=== PATIENT | male | born 1945 | race Caucasian/White ===

== ENCOUNTER 2025-08-10 10:14 | Outpatient (AMB) | payer OTHER, MEDICARE, SELFPAY ==
--- NOTE | 2025-08-10 10:23 | MHC.OFFVIS ---
Intake Visit Reasons: 1YR. Chr MS Allergies No Known Allergies Allergy (Verified 08/10/25 10:24) HPI Comments Details: He was doing okay. MS stable with no new symptoms. Balance was about the same. Walking few times a week with walking poles and lifting weights. Using cane for security. May have had one minor fall in the last year without injury. No dizziness or passing out. Memory was about the same. Memory may have slipped a bit as names do not come as quickly, but not impairing him in any way. He is using a cane for security. Does some home domi-chi. 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 Stopped driving in 2011. Stopped Extavia Injections since Middle of April 2018. Has a suprapubic catheter with a bag by Windy Gerber, instead of a TURP. He gets a monthly bag change and 3 catheters a month. He has chronic MS : relapsing remitting for about 40 years (since around 1984). His main deficit is one of balance and mild incoordination on the left side. His energy level is good. His memory is stable with no cognitive issues. [facility] Surgical History (Updated 08/10/25 @ 10:28 by Danielle Talbert CNP) Status post THR (total hip replacement) Review of Systems Const Denies chills, Denies daytime sleepiness, Denies difficulty sleeping, Denies fatigue, Denies fever(s), Denies frequent falls, Denies headache(s), Denies increased appetite, Denies poor appetite, Denies snoring, Denies weakness, Denies weight gain and Denies weight loss Eyes Denies loss of vision ENT Denies vertigo, Reports dizziness, Denies headache(s) and Denies neck pain Card Denies chest pain at rest, Denies chest pain with activity, Denies syncope, Denies leg edema, Denies palpitations, Denies dyspnea and Denies dyspnea on exertion Resp Denies cough, Denies dyspnea, Denies dyspnea on exertion and Denies snoring GI Denies abdominal pain, Denies constipation, Denies heartburn, Denies diarrhea and Denies nausea Denies urinary frequency, Denies urinary incontinence and Denies urinary urgency Musc Reports abnormal gait (balance difficulty), Denies back pain, Denies myalgias, Denies arthralgias, Denies neck pain, Denies numbness and Denies tingling Neuro Reports abnormal gait (balance difficulty), Denies vertigo, Reports dizziness, Denies syncope, Denies frequent falls, Denies headache(s), Denies lack of coordination, Denies loss of vision, Denies memory loss, Denies numbness, Denies Other visual disturbances, Denies restless legs, Denies seizure-like activity, Denies tingling, Denies paresthesias, Denies tremor(s) and Denies weakness Psych Denies anxiety, Denies depression, Denies auditory hallucinations, Denies memory loss and Denies visual hallucinations Endo Denies fatigue and Denies palpitations Physical Exam Const Other: General Appearance:? normal, in no acute distress. Heart:? S1, S2 normal, no murmurs. Lungs:? clear anteriorly and posteriorly. Musculoskeletal:? normal. Extremities:? no edema. Psych:? alert, oriented, cognitive function intact, cooperative with exam. Neuro Other: Abnormal Neurological Findings:?Slight dysmetria of FTN, L > R. Slow DIMA on L finger tapping. Broad based gait with cane. Subtle LUE weakness. Mental Status: alert and oriented X 3. Normal attention, orientation, memory, and affect. Cranial Nerves: Pupils are equal, round, and reactive to light. External ocular muscles are intact. Visual melo are full, no ptosis. Face is symmetrical, no facial weakness or droop. Facial sensations are normal. Tongue protrudes in midline. Palate elevates symmetrically. Shoulder shrugging is normal Motor Examination: As above, otherwise normal muscle tone, bulk and strength. No atrophy or fasciculations. No drift of the extended upper extremities. DTR 2+. Plantars are flexor. Sensory Exam: Normal light touch, temperature, pinprick, vibration, and joint-position sensations. Rhomberg sign is absent. Coordination: As above. Gait Exam: Broad based with cane and slight ataxia. Cerebellar Signs: Slight dysmetria of FTN, L > R. Extrapyramidal System: No tremor, rigidity with normal facial expressions. No bradykinesia. No bradyphrenia. Normal arm swing and posture. No propulsion or retropulsion. Speech: Normal. Assessment & Plan Assessment & Plan (1) Multiple sclerosis: Code(s): G35 - Multiple sclerosis Category: Medical Plan: MS stable, no new symptoms. Stay physically active, continue to use cane for additional support. Plan Meds tried: Extavia injections (stopped mid-04/2018) Coding Level of Care Code Est Pt Level 3 (62944) Diagnoses Multiple sclerosis G35
--- OUTSIDE RECORDS SUMMARY | 2025-08-10 11:20 | XMS_ITS | Encounter Summary ---
Author Organization [facility] Address [address] [place] [address] Care Team Providers Care Criminal Justice Instructor Name Role Phone Harris Hairston MD Primary Care Provider Encounter Details Date Type Department Care Team (Latest Contact Info) Description 01/08/2025 Lab Requisition [facility] - Main Lab [address] [place] [id number] [place], [place] [address] [address] Neuromuscular dysfunction of bladder, unspecified Social History Tobacco Use Types Packs/Day Years Used Date Smoking Tobacco: Never Assessed Sex and Gender Information Value Date Recorded Sex Assigned at Not on file Legal Sex Male 10:51 AM EST Gender Identity Not on file Sexual Orientation Not on file documented as of this encounter Plan of Treatment Not on file documented as of this encounter Procedures Procedure Name Priority Date/Time Associated Diagnosis Comments BACTERIAL IDENTIFICATION AND SUSCEPTIBILITY, AEROBIC Routine 01/07/2025 12:00 AM EST Neuromuscular dysfunction of bladder, unspecified documented in this encounter Results * (ABNORMAL) Bacterial identification and susceptibility, aerobic (01/07/2025 12:00 AM EST) Culture, Bacterial ID and Sensitivity Enterococcus faecalis(A) ROQUE 01/11/2025 11:02 AM EST [facility] Comment: Edited result: Previously reported as Gram Positive Cocci on 01/08/2025 at 1138 EST. Edited result: Previously reported as Enterococcus species on 01/09/2025 at 0914 EST. Culture, Bacterial ID and Sensitivity Aerococcus urinae(A) ROQUE 01/11/2025 11:02 AM EST [facility] Comment: Susceptibility testing not routinely performed. If further therapeutic information is required, please consult an infectious disease specialist. The organism value for this result has been updated. These results have been appended to the previously preliminary verified report. This is an edited result. Previous organism was Streptococcus alpha-hemolytic on 01/10/2025 at 0926 EST. Other Urine specimen from urinary conduit / Unknown 01/07/2025 01/08/2025 10:28 AM EST Narrative Organism Antibiotic Method Susceptibility Enterococcus faecalis Benzylpenicillin ROQUE 4 ug/ml: Susceptible Enterococcus faecalis Ampicillin ROQUE <=2 ug/ml: Susceptible Enterococcus faecalis Ciprofloxacin ROQUE 1 ug/ml: Susceptible Enterococcus faecalis Levofloxacin ROQUE 1 ug/ml: Susceptible Enterococcus faecalis Linezolid ROQUE 2 ug/ml: Susceptible Enterococcus faecalis Vancomycin ROQUE 2 ug/ml: Susceptible Enterococcus faecalis Tetracycline ROQUE >=16 ug/ml: Resistant Enterococcus faecalis Nitrofurantoin ROQUE <=16 ug/ml: Susceptible us [facility]CRO[facility]OLOGY - GENERAL ORDER SUSIE Final Result [facility] [address] [place] [address], documented in this encounter Visit Diagnoses Diagnosis Neuromuscular dysfunction of bladder, unspecified documented in this encounter Care Teams Criminal Justice Instructor Relationship Specialty Start Date End Date Harris Hairston MD [address] PCP - General 09/09/08 documented as of this encounter
--- OUTSIDE RECORDS SUMMARY | 2025-08-10 11:20 | XMS_ITS | Clinical Summary ---
Author Organization [facility] Facility Address [address] [address] Care Team Providers Care Pearl Stringer Name Role Phone Harris Hairston MD Primary Care Provider [phone] Allergies No known active allergies Medications tamsulosin (FLOMAX) 0.4 MG 24 hr capsule 10/26/2021 Active thiamine (VITAMIN B-1) 100 MG tablet 10/30/2021 Active Active Problems Problem Noted Date Diagnosed Date Hydronephrosis 11/06/2021 Family History Medical History Relation Comments Kidney cancer Father Heart failure Mother Relation Status Comments Father Mother Social History Tobacco Use Types Packs/Day Years Used Date Smoking Tobacco: Never Smokeless Tobacco: Never Tobacco Cessation:Counseling Given: No Alcohol Use Standard Drinks/Week Comments Yes 0 (1 standard drink = 0.6 oz pur e alcohol) 1-2 beers Sex and Gender Information Value Date Recorded Sex Assigned at Not on file Legal Sex Male 8:17 AM EST Gender Identity Not on file Sexual Orientation Not on file Last Filed Vital Signs Vital Sign Reading Time Taken Comments Blood Pressure 152/87 11/06/2021 3:25 PM EST Pulse 81 11/06/2021 3:25 PM EST Temperature - - Respiratory Rate - - Oxygen Saturation - - Inhaled Oxygen Concentration - - Weight 77.5 kg (170 lb 12.8 oz) 11/06/2021 3:25 PM EST Height - - Body Mass Index - - Plan of Treatment Health Maintenance Due Date Last Done Comments Pneumococcal Vaccine: 50+ Ye ars (1 of 1 - PCV) 1997 Influenza Vaccine (#1) 2025 Hepatitis B Vaccine Aged Out No longe r eligible based on patient's age to complete this topic Insurance Medicare [facility] Care Teams Pearl Stringer Relationship Specialty Start Date End Date Harris Hairston MD [address] [place] [address] [address] [place] [address] PCP - General Internal Medicine 10/11/21
--- OUTSIDE RECORDS SUMMARY | 2025-08-10 11:20 | XMS_ITS | Clinical Summary ---
Author Organization [address] [facility] Address [address] [place] [address] Phone Care Team Providers Care Admitted Attorneys Name Role Phone Harris Hairston MD Primary Care Provider Social History Tobacco Use Types Packs/Day Years Used Date Smoking Tobacco: Never Assessed Sex and Gender Information Value Date Recorded Sex Assigned at Not on file Legal Sex Male 10:51 AM EST Gender Identity Not on file Sexual Orientation Not on file Last Filed Vital Signs Vital Sign Reading Time Taken Comments Blood Pressure 125/92 10/04/2023 5:18 PM EST Sit ting L Arm Pulse 72 10/04/2023 5:18 PM EST Temperature - - Respiratory Rate - - Oxygen Saturation - - Inhaled Oxygen Concentration - - Weight - - Height - - Body Mass Index - - Plan of Treatment Health Maintenance Due Date Last Done Comments DTaP,Tdap,and Td Vaccines (1 - Tdap) 1966 Pneumococcal Vaccine: 50+ Ye ars (1 of 1 - PCV) 1997 Zoster Vaccines (1 of 2) 1997 RSV Immunization Adult Patie nts (1 - 1-dose 75+ series) 2022 Cholesterol Screening (Lipid Panel) 10/09/2022 Falls Risk Assessment 10/09/2022 Hepatitis C Screening 10/09/2022 Medicare Annual Wellness Visit 10/09/2022 Social Influencers of Health Screening 10/09/2022 Depression Screening 11/11/2024 COVID-19 Vaccine (1 - 2023-2 5 season) 2025 Influenza Vaccine (#1) 2025 HIB Vaccines Aged Out No longer eligi ble based on patient's age to complete this topic HPV Vaccines Aged Out No longer eligi ble based on patient's age to complete this topic Hepatitis A Vaccines Aged Out No long er eligible based on patient's age to complete this topic Hepatitis B Vaccines Aged Out No long er eligible based on patient's age to complete this topic IPV Vaccines Aged Out No longer eligi ble based on patient's age to complete this topic MMR Vaccines Aged Out No longer eligi ble based on patient's age to complete this topic Meningococcal ACWY Vaccine Aged Out N o longer eligible based on patient's age to complete this topic Meningococcal B Vaccine Aged Out No l onger eligible based on patient's age to complete this topic RSV Immunization Patients Un lulú 20 months Aged Out No longer eligible b ased on patient's age to complete this topic Varicella Vaccines Aged Out No longer eligible based on patient's age to complete this topic Insurance MEDICARE [facility] Advance Directives Documents on File Type Date Recorded Patient Quality Assurance Supervisor Expl anation Health Care Decision (hx) 10/18/2021 AD SMITH DIRECTIVE Health Care Decision (hx) 10/18/2021 AD SMITH DIRECTIVE Health Care Decision (hx) 10/18/2021 AD SMITH DIRECTIVE Health Care Decision (hx) 10/18/2021 AD SMITH DIRECTIVE Care Teams Admitted Attorneys Relationship Specialty Start Date End Date Harris Hairston MD [address] [place] [address] PCP - General 09/09/08
--- OUTSIDE RECORDS SUMMARY | 2025-08-10 11:20 | XMS_ITS ---
Author Name [facility] Organization Unknown Care Team Organization Name Specialty Phone Email Start Date End Da viviana [facility] Harris Hairston Primary Care 09/18/2022
== END 2025-08-10 10:53 | disposition home or self-care (01) ==
LOC: HO.HSM 10:14
PROVIDERS: PCP Internal Medicine; Referring Provider Internal Medicine; Visit Provider Registered Nurse
DX: G35 Multiple sclerosis (principal)
CPT/HCPCS: 99213